=== PATIENT | male | born 1980 | race Two or more races ===

== ENCOUNTER 2024-04-07 07:05 | Outpatient (CLI) | payer OTHER ==
[~2024-04-07 07:05] MED LIST: MEDROLPACK PO; TIZANIDINE HCL2 MG PO; TORADOL10 MG
== END 2024-04-07 07:32 | disposition home or self-care (01) ==
LOC: RAD 07:05
PROVIDERS: ATTEND General Practice
DX: G89.11 Acute pain due to trauma (principal); M25.571 Pain in right ankle and joints of right foot; N63.10 Unspecified lump in the right breast, unspecified quadrant; R22.2 Localized swelling, mass and lump, trunk

== ENCOUNTER 2024-07-20 09:33 | Outpatient (CLI) | payer OTHER ==
[~2024-07-20 09:33] MED LIST changes: +GABAPENTIN300 M2 PO
== END 2024-07-20 09:34 | disposition home or self-care (01) ==
LOC: RAD 09:33
PROVIDERS: ATTEND Specialist
DX: M25.59 Pain in other specified joint (principal)

== ENCOUNTER 2024-12-26 10:11 | Emergency (ER) | payer OTHER ==
[~2024-12-26] VITALS: Ht 167.6 cm; Wt 99.8 kg
[~2024-12-26 10:11] MED LIST changes: +ARTHRITIS PAIN150 GM TOP; +DICLOFENAC POTA50 MG PO; +GABAPENTIN400 MG PO
[2024-12-26 11:34] VITALS: BP 146/88; O2SAT 99
[2024-12-26] MEDS ORDERED: ORPHENADRINE CITRATE 30 MG/ML AMPUL IM ONE (12:00)
[2024-12-26] MEDS ORDERED: KETOROLAC TROMETHAMINE 60 MG VIAL IM ONE ×2 (12:00→12:21)
[2024-12-26] MEDS ORDERED: ORPHENADRINE CITRATE 30 MG/ML AMPUL ONE (12:21)
[2024-12-26] MEDS ORDERED: NORFLEX100MG PO (13:10)
[2024-12-26] MEDS ORDERED: KETO10TA2 PO (13:10)
== END 2024-12-26 13:17 | disposition home or self-care (01) ==
LOC: ER 10:11
DX: M54.50 Low back pain, unspecified (principal); Z91.013 Allergy to seafood